=== PATIENT | male | born 1960 | race Caucasian/White ===

== ENCOUNTER 2018-03-30 09:40 | Emergency (ER) | payer MEDICAID ==
[~2018-03-30] VITALS: Ht 162.6 cm; Wt 84.0 kg
[~2018-03-30 09:40] MED LIST: AMLO-511 PO; LOSA50TA25 PO
[2018-03-30] MEDS ORDERED: TAMS0.4C32 PO (09:46)
[2018-03-30] MEDS ORDERED: ANTIBIOTIC (09:46)
[2018-03-30 13:28] VITALS: BP 141/78
== END 2018-03-30 14:12 | disposition home or self-care (01) ==
LOC: EMS 09:41
DX: R31.9 Hematuria, unspecified (principal); I10 Essential (primary) hypertension; N40.0 Benign prostatic hyperplasia without lower urinary tract symptoms; Z88.0 Allergy status to penicillin
CPT/HCPCS: 99283

== ENCOUNTER 2018-04-02 12:36 | Emergency (ER) | payer MEDICAID ==
[~2018-04-02] VITALS: Ht 172.7 cm; Wt 90.9 kg
[~2018-04-02 12:36] MED LIST changes: +ANTIBIOTIC; +TAMS0.4C32 PO
[2018-04-02] MEDS ORDERED: CIPR-278 PO (12:41)
[2018-04-02] MEDS ORDERED: SULFAD500 PO (12:41)
[2018-04-02] MEDS ORDERED: SERT50TA12 PO (12:41)
[2018-04-02] MEDS ORDERED: ACETAMINOPHEN 500 MG TABLET PO ONE (15:00)
[2018-04-02 15:48] VITALS: BP 116/75
[2018-04-02 15:48] LABS: APPEARANCE,URINE TURBID (CLEAR); GLUCOSE, URINE (UA) NEGATIVE (NEGATIVE); KETONES,URINE 15 mg/dL (NEGATIVE); LEUKOCYTE ESTERASE ,URINE MODERATE (NEGATIVE); NITRATE,URINE POSITIVE (NEGATIVE); OCCULT BLOOD,URINE LARGE (NEGATIVE); PROTEIN,URINE SEE CONFIRM (NEGATIVE)
[2018-04-02 15:58] LABS: BILIRUBIN,URINE PRELIM. POSITIVE (NEGATIVE)
[2018-04-02 16:09] LABS: RBC,URINE 51-100 /HPF (0-2); SULFOSALICYLIC ACID,URINE 3+ (Negative)
[2018-04-02 16:10] LABS: BACTERIA,URINE Many /HPF (None Seen); WBC,URINE 51-100 /HPF (0-5)
== END 2018-04-02 16:53 | disposition home or self-care (01) ==
LOC: EMS 12:37
DX: N39.0 Urinary tract infection, site not specified (principal); R31.9 Hematuria, unspecified; I10 Essential (primary) hypertension; N40.0 Benign prostatic hyperplasia without lower urinary tract symptoms; Z88.0 Allergy status to penicillin; Z79.899 Other long term (current) drug therapy
CPT/HCPCS: 87086; 99284

== ENCOUNTER 2018-07-08 05:47 | Emergency (ER) | payer MEDICAID ==
[~2018-07-08] VITALS: Ht 175.3 cm; Wt 79.5 kg
[~2018-07-08 05:47] MED LIST changes: -LOSA50TA25 PO; +LOSA50TA64 PO; +SERT50TA12 PO; +SULFAD500 PO
[2018-07-08] MEDS ORDERED: LORA10TA7 PO (05:59)
[2018-07-08] MEDS ORDERED: IBUP-2070 PO (05:59)
[2018-07-08 07:06] VITALS: BP 130/89
== END 2018-07-08 07:25 | disposition home or self-care (01) ==
LOC: EMS 05:51
DX: M54.12 Radiculopathy, cervical region (principal); M25.511 Pain in right shoulder; I10 Essential (primary) hypertension; Z88.0 Allergy status to penicillin

== ENCOUNTER 2019-11-30 10:30 | Inpatient (IN) | payer OTHER ==
[~2019-11-30] VITALS: Ht 157.5 cm; Wt 91.4 kg
[~2019-11-30 10:30] MED LIST changes: +AMLO-257 PO; -AMLO-511 PO; -ANTIBIOTIC; +IBUP-2070 PO; +LORA10TA7 PO; +LOSA50TA37 PO; -LOSA50TA64 PO; -SERT50TA12 PO; -SULFAD500 PO; +TAMS-13 PO; -TAMS0.4C32 PO
[2019-12-30] MEDS ORDERED: TRANEXAMIC ACID 1,000 MG in DEXTROSE 5%-WATER 50 ML IV ONE ×2
[2019-12-30] MEDS ORDERED: CeFAZolin 2 GM/DEXTROSE 50 ML IV ONE ×2 (07:00→13:52)
[2019-12-30 11:43] LABS: BASOPHILS % (AUTO) 1.2 % (0.0-2.0); EOSINOPHILS % (AUTO) 6.3 % (1.0-6.0); HEMATOCRIT 40.3 % (41-53); HEMOGLOBIN 13.1 g/dL (13.5-17.5); LYMPHOCYTES # (AUTO) 1.4 K/uL (1.0-4.8); LYMPHOCYTES % (AUTO) 22.2 % (22.0-44.0); MEAN CORPUSCULAR HGB CONC 32.6 G/dL (31.0-37.0); MEAN CORPUSCULAR VOLUME 80 fL (80-100); MONOCYTES # (AUTO) 0.7 K/uL (0.1-1.0); MONOCYTES % (AUTO) 11.1 % (2.0-9.0); NEUTROPHILS # (AUTO) 3.8 K/uL (1.8-7.7); NEUTROPHILS % (AUTO) 59.2 % (40.0-70.0); PLATELET COUNT (AUTO) 202 K/uL (150-450); RED BLOOD CELL COUNT(AUTO) 5.05 MIL/uL (4.50-5.90); RED CELL DISTRIBUTION WIDTH 15.1 % (11.5-14.5)
[2019-12-30] MEDS ORDERED: RINGERS SOLUTION,LACTATED 1,000 ML IV ONE ×3 (12:00→17:02)
[2019-12-30] MEDS ORDERED: BUPIVACAINE LIPOSOME/PF 1.3%-13.3MG/ML SUSPENSION 20 ML VIAL INJ ONE (16:00)
[2019-12-30] MEDS ORDERED: TRANEXAMIC ACID 1,000 MG/10 ML VIAL ONE ×2 (16:07→18:12)
[2019-12-30] MEDS ORDERED: BUPIVACAINE HCL/PF 0.5% 30 ML VIAL ONE (16:07)
[2019-12-30] MEDS ORDERED: BACITRACIN 50,000 UNITS/VIAL ONE (16:07)
[2019-12-30] MEDS ORDERED: SODIUM CL IRRIG SOLN BAG 3,000 ML IRRIG ONE (16:07)
[2019-12-30] MEDS ORDERED: SODIUM CHLORIDE 0.9% 10 ML ONE (16:15)
[2019-12-30] MEDS ORDERED: BUPIVACAINE LIPOSOME/PF 1.3%-13.3MG/ML SUSPENSION 10 ML VIAL INJ ONE (16:15)
[2019-12-30] MEDS ORDERED: ACETAMINOPHEN 1000 MG/ISO-OSM 100 ML IV ONE (17:00)
[2019-12-30] MEDS ORDERED: MEPERIDINE-PF 25 MG/ML VIAL IVP PRN (17:00)
[2019-12-30] MEDS ORDERED: HYDROmorphone 2 MG/ML SYRINGE IVP PRN ×3 (17:00→18:30)
[2019-12-30] MEDS ORDERED: OxyCODONE HCL/ACETAMINOPHEN 5-325 MG TABLET PO PRN (17:00)
[2019-12-30] MEDS ORDERED: FentaNYL CITRATE-PF 100 MCG/2 ML VIAL IVP PRN (17:00)
[2019-12-30] MEDS ORDERED: KETOROLAC TROMETHAMINE 15 MG/ML VIAL IVP PRN (18:30)
[2019-12-30] MEDS ORDERED: BISACODYL 10 MG RECTAL RECTAL SUPPOSITORY PR PRN ×2 (18:30→20:30)
[2019-12-30] MEDS ORDERED: DiphenhydrAMINE HCL 50 MG/ML VIAL IVP PRN (18:30)
[2019-12-30] MEDS ORDERED: ONDANSETRON HCL 4 MG/2 ML VIAL IVP PRN ×2 (18:30→20:30)
[2019-12-30 20:00] VITALS: BP 150/106
[2019-12-30] MEDS ORDERED: OXYGEN THERAPY IH SCH (20:00)
[2019-12-30] MEDS ORDERED: MORPHINE SULFATE 2 MG/ML SYRINGE IVP PRN (20:30)
[2019-12-30] MEDS ORDERED: ACETAMINOPHEN 325 MG TABLET PO PRN (20:30)
[2019-12-30] MEDS ORDERED: MAGNESIUM HYDROXIDE SUSPENSION 30 ML UDCUP PO PRN (20:30)
[2019-12-30] MEDS ORDERED: ALBUTEROL SULFATE 2.5 MG/0.5 ML NEB SOLUTION NEB PRN (20:30)
[2019-12-30] MEDS ORDERED: ZOLPIDEM TARTRATE 5 MG TABLET PO PRN (20:30)
[2019-12-30] MEDS ORDERED: AmLODIPine BESYLATE 5 MG TABLET PO ONE (20:30)
[2019-12-30] MEDS ORDERED: IPRATROPIUM BROMIDE 0.5 MG/2.5 ML NEB SOLUTION NEB PRN (20:30)
[2019-12-30] MEDS ORDERED: DOCUSATE SODIUM 100 MG CAPSULE PO SCH (21:00)
[2019-12-30] MEDS: CYCLOBENZAPRINE HCL 10 MG TABLET PO SCH (21:10)
[2019-12-30] MEDS: DOCUSATE SODIUM 100 MG CAPSULE PO SCH (21:11)
[2019-12-30] MEDS: HYDROCODONE/ACETAMINOPHEN 5-325 MG TABLET PO PRN (21:11)
[2019-12-30] MEDS: SODIUM CHLORIDE 0.45% 1,000 ML IV SCH (21:18)
[2019-12-30 23:40] VITALS: BP 133/85
[2019-12-31] MEDS: ACETAMINOPHEN 1000 MG/ISO-OSM 100 ML IV SCH ×3 (01:21→11:00)
[2019-12-31 04:20] VITALS: BP 144/94
[2019-12-31] MEDS ORDERED: PROPOFOL 1% 20 ML VIAL IVP ONE (05:26)
[2019-12-31] MEDS ORDERED: LABETALOL HCL 5 MG/ML 20 ML VIAL IVP ONE (05:26)
[2019-12-31] MEDS ORDERED: METOCLOPRAMIDE HCL 5 MG/ML 2 ML VIAL IVP ONE (05:26)
[2019-12-31] MEDS ORDERED: MIDAZOLAM HCL 2 MG/2 ML VIAL IVP ONE (05:26)
[2019-12-31] MEDS ORDERED: DEXAMETHASONE SOD PHOS 4 MG/ML VIAL IVP ONE (05:26)
[2019-12-31] MEDS ORDERED: KETAMINE HCL 50 MG/ML 10 ML VIAL IVP ONE (05:26)
[2019-12-31] MEDS ORDERED: FentaNYL CITRATE-PF 100 MCG/2 ML VIAL IVP ONE (05:26)
[2019-12-31] MEDS ORDERED: ONDANSETRON HCL 4 MG/2 ML VIAL IVP ONE (05:26)
[2019-12-31] MEDS ORDERED: LIDOCAINE/PF 2% 5 ML SYRINGE IVP ONE (05:26)
[2019-12-31 07:10] LABS: BASOPHILS % (AUTO) 0.1 % (0.0-2.0); EOSINOPHILS % (AUTO) 0 % (1.0-6.0); HEMATOCRIT 39.9 % (41-53); HEMOGLOBIN 13.4 g/dL (13.5-17.5); LYMPHOCYTES # (AUTO) 0.7 K/uL (1.0-4.8); MEAN CORPUSCULAR HEMOGLOBIN 26.7 pg (26.0-34.0); MEAN CORPUSCULAR HGB CONC 33.7 G/dL (31.0-37.0); MEAN CORPUSCULAR VOLUME 79 fL (80-100); MONOCYTES # (AUTO) 0.5 K/uL (0.1-1.0); MONOCYTES % (AUTO) 4.4 % (2.0-9.0); NEUTROPHILS # (AUTO) 9.2 K/uL (1.8-7.7); PLATELET COUNT (AUTO) 211 K/uL (150-450); RED BLOOD CELL COUNT(AUTO) 5.04 MIL/uL (4.50-5.90); RED CELL DISTRIBUTION WIDTH 15.4 % (11.5-14.5)
[2019-12-31 07:16] LABS: NEUTROPHILS % (AUTO) 88.5 % (40.0-70.0)
[2019-12-31] MEDS: SODIUM CHLORIDE 0.45% 1,000 ML IV SCH (07:50)
[2019-12-31 08:00] VITALS: BP 134/91
[2019-12-31] MEDS ORDERED: FERROUS SULFATE 325 MG EC TABLET PO SCH (08:00)
[2019-12-31] MEDS ORDERED: ENOXAPARIN SODIUM 30 MG/0.3 ML PF SYRINGE SQ SCH (08:00)
[2019-12-31] MEDS: CYCLOBENZAPRINE HCL 10 MG TABLET PO SCH (08:15)
[2019-12-31] MEDS: DOCUSATE SODIUM 100 MG CAPSULE PO SCH (08:15)
[2019-12-31] MEDS ORDERED: LOSARTAN POTASSIUM 50 MG TABLET PO SCH ×2 (09:00)
[2019-12-31] MEDS ORDERED: AmLODIPine BESYLATE 5 MG TABLET PO SCH ×2 (09:00)
[2019-12-31] MEDS ORDERED: PANTOPRAZOLE SODIUM 40 MG DR TABLET PO SCH (09:00)
[2019-12-31] MEDS ORDERED: LOSARTAN POTASSIUM 25 MG TABLET PO SCH ×2 (09:00)
[2019-12-31] MEDS: HYDROCODONE/ACETAMINOPHEN 5-325 MG TABLET PO PRN (09:39)
[2019-12-31] MEDS ORDERED: PERCT PO (10:13)
== END 2019-12-31 14:10 | disposition home or self-care (01) | DRG 470 ==
LOC: 4E 12-30 10:44
PROVIDERS: ADMIT Orthopaedic Surgery; ATTEND Orthopaedic Surgery
PROC: 0SBD0ZZ Excision of Left Knee Joint, Open Approach (ICD-10-PCS; 2019-12-30)
PROC: 0SRD0L9 Replacement of Left Knee Joint with Medial Unicondylar Synthetic Substitute, Cemented, Open Approach (ICD-10-PCS; principal; 2019-12-30 14:00)
DX: M17.12 Unilateral primary osteoarthritis, left knee (principal); I10 Essential (primary) hypertension; S83.242A Other tear of medial meniscus, current injury, left knee, initial encounter; Z20.828 Contact with and (suspected) exposure to other viral communicable diseases; Z82.49 Family history of ischemic heart disease and other diseases of the circulatory system; Z88.0 Allergy status to penicillin
CPT/HCPCS: 88305; 88311; 93005; 97116; 97162; C9290; G0378; J0131; J0690; J1100; J1650; J2250; J2270; J2405; J2704; J2765; J3010; J3490; J7060; J7120; 36415-L1; 36415-TC; 71045-TC; C1716; U0003

== ENCOUNTER 2020-03-16 12:05 | Inpatient (IN) | payer MEDICAID, OTHER ==
[~2020-03-16] VITALS: Ht 170.2 cm; Wt 78.0 kg
[~2020-03-16 12:05] MED LIST changes: -IBUP-2070 PO; -LORA10TA7 PO; +PERCT PO; -TAMS-13 PO
[2020-03-16 12:41] LABS: BASOPHILS % (AUTO) 0.3 % (0.0-2.0); EOSINOPHILS % (AUTO) 0.2 % (1.0-6.0); HEMATOCRIT 40.1 % (41-53); HEMOGLOBIN 13.6 g/dL (13.5-17.5); LYMPHOCYTES # (AUTO) 1.5 K/uL (1.0-4.8); LYMPHOCYTES % (AUTO) 14.6 % (22.0-44.0); MEAN CORPUSCULAR HEMOGLOBIN 26.6 pg (26.0-34.0); MEAN CORPUSCULAR HGB CONC 33.9 G/dL (31.0-37.0); MEAN CORPUSCULAR VOLUME 79 fL (80-100); MONOCYTES # (AUTO) 0.8 K/uL (0.1-1.0); MONOCYTES % (AUTO) 8.3 % (2.0-9.0); NEUTROPHILS # (AUTO) 7.7 K/uL (1.8-7.7); NEUTROPHILS % (AUTO) 76.6 % (40.0-70.0); PLATELET COUNT (AUTO) 244 K/uL (150-450); RED BLOOD CELL COUNT(AUTO) 5.11 MIL/uL (4.50-5.90); RED CELL DISTRIBUTION WIDTH 14.9 % (11.5-14.5)
[2020-03-16] MEDS ORDERED: FentaNYL CITRATE-PF 100 MCG/2 ML VIAL ONE (12:45)
[2020-03-16 12:46] LABS: COVID AG,FIA SOURCE NASOPHARYNGEAL
[2020-03-16] MEDS ORDERED: MIDAZOLAM HCL 2 MG/2 ML VIAL ONE (12:46)
[2020-03-16] MEDS ORDERED: SODIUM BICARBONATE 50 MEQ/50 ML VIAL ONE (12:46)
[2020-03-16] MEDS ORDERED: IOHEXOL 300 MG/ML 150 ML VIAL ONE (12:46)
[2020-03-16] MEDS ORDERED: LIDOCAINE/PF 1% 30 ML VIAL ONE (12:46)
[2020-03-16] MEDS ORDERED: HEPARIN SODIUM,PORCINE 1,000 UNITS/ML 10 ML VIAL ONE (12:46)
[2020-03-16] MEDS ORDERED: HEPARIN SODIUM 1000 UNITS/NS 1,000 ML ONE (12:46)
[2020-03-16 12:51] VITALS: BP 138/85
[2020-03-16 12:52] LABS: ANION GAP 10 mmol/L (8-16); CALCIUM, TOTAL 8.9 mg/dL (8.8-10.5); CARBON DIOXIDE 27 mmol/L (22-29); CHLORIDE 105 mmol/L (98-107); CREATININE 0.93 mg/dL (0.60-1.30); GLOMERULAR FILTR. RATE CALC > 60 mL/min (>60); GLUCOSE,RANDOM 136 mg/dL (70-110); POTASSIUM 3.2 mmol/L (3.5-5.1); SODIUM SERUM 142 mmol/L (136-145); UREA NITROGEN, BLOOD 23 mg/dL (7-18)
[2020-03-16] MEDS ORDERED: VERAPAMIL HCL 2.5 MG/ML 2 ML VIAL ONE (12:55)
[2020-03-16] MEDS ORDERED: TICAGRELOR 90 MG TABLET ONE (12:55)
[2020-03-16] MEDS ORDERED: ASPIRIN 325 MG TABLET ONE (12:55)
[2020-03-16] MEDS ORDERED: NITROGLYCERIN 50 MG/D5% WATER 250 ML ONE (12:55)
[2020-03-16] MEDS ORDERED: POTASSIUM CHLORIDE 20 MEQ ER TABLET ONE (12:58)
[2020-03-16] MEDS ORDERED: HEPARIN SODIUM 2,000 UNITS in HEPARIN SODIUM 1000 UNITS/NS 1,000 ML IARTER ONE (13:08)
[2020-03-16 13:12] LABS: B-TYPE NATRIURETIC PEPTIDE 18 pg/mL (0-100)
[2020-03-16] MEDS ORDERED: IOHEXOL 300 MG/ML 150 ML VIAL IARTER ONE (13:15)
[2020-03-16] MEDS ORDERED: LIDOCAINE 1% 30 ML/SOD BICARB 8.4% 4 ML SQ ONE (13:15)
[2020-03-16 13:18] LABS: ALANINE AMINOTRANSFERASE 29 U/L (12-78); ALBUMIN 3.6 g/dL (3.4-5.0); ALKALINE PHOSPHATASE 100 U/L (46-116); ASPARTATE AMINOTRANSFERASE 17 U/L (15-37); BILIRUBIN,TOTAL 0.5 mg/dL (0.1-1.0); CREATINE KINASE, TOTAL ONLY 159 U/L (39-308); TOTAL PROTEIN, SERUM 6.7 g/dL (6.4-8.2)
[2020-03-16 13:20] LABS: PROTHROMBIN TIME 10.2 SEC (9.4-11.6)
[2020-03-16 13:44] VITALS: BP 158/90
[2020-03-16] MEDS ORDERED: ACETAMINOPHEN 325 MG TABLET PO PRN ×2 (13:45→14:00)
[2020-03-16] MEDS ORDERED: OxyCODONE HCL/ACETAMINOPHEN 5-325 MG TABLET PO PRN (13:45)
[2020-03-16 14:00] VITALS: BP 122/93
[2020-03-16] MEDS ORDERED: IPRATROPIUM BROMIDE 0.5 MG/2.5 ML NEB SOLUTION NEB PRN (14:00)
[2020-03-16] MEDS ORDERED: 0.9% SODIUM CHLORIDE 10 ML SYRINGE IVP PRN (14:00)
[2020-03-16] MEDS ORDERED: BISACODYL 10 MG RECTAL RECTAL SUPPOSITORY PR PRN (14:00)
[2020-03-16] MEDS ORDERED: MORPHINE SULFATE 2 MG/ML SYRINGE IVP PRN (14:00)
[2020-03-16] MEDS ORDERED: ALBUTEROL SULFATE 2.5 MG/0.5 ML NEB SOLUTION NEB PRN (14:00)
[2020-03-16] MEDS ORDERED: ONDANSETRON HCL 4 MG/2 ML VIAL IVP PRN (14:00)
[2020-03-16] MEDS ORDERED: MAGNESIUM HYDROXIDE SUSPENSION 30 ML UDCUP PO PRN (14:00)
[2020-03-16] MEDS: METOPROLOL SUCCINATE 50 MG ER TABLET PO SCH (15:51)
[2020-03-16] MEDS: PANTOPRAZOLE SODIUM 40 MG DR TABLET PO SCH (15:51)
[2020-03-16] MEDS: LOSARTAN POTASSIUM 50 MG TABLET PO SCH (15:51)
[2020-03-16 16:00] VITALS: BP 149/99
[2020-03-16 17:03] VITALS: BP 149/99
[2020-03-16 20:00] VITALS: BP 135/85
[2020-03-16] MEDS ORDERED: METOPROLOL TARTRATE 25 MG TABLET PO SCH (21:00)
[2020-03-16] MEDS ORDERED: AmLODIPine BESYLATE 2.5 MG TABLET PO SCH (21:00)
[2020-03-17 04:01] VITALS: BP 141/95
[2020-03-17 07:00] LABS: BASOPHILS % (AUTO) 0.3 % (0.0-2.0); EOSINOPHILS % (AUTO) 1.6 % (1.0-6.0); HEMATOCRIT 37.9 % (41-53); HEMOGLOBIN 12.8 g/dL (13.5-17.5); LYMPHOCYTES # (AUTO) 2.4 K/uL (1.0-4.8); LYMPHOCYTES % (AUTO) 27.5 % (22.0-44.0); MEAN CORPUSCULAR HEMOGLOBIN 26.5 pg (26.0-34.0); MEAN CORPUSCULAR HGB CONC 33.8 G/dL (31.0-37.0); MEAN CORPUSCULAR VOLUME 79 fL (80-100); MONOCYTES # (AUTO) 0.9 K/uL (0.1-1.0); MONOCYTES % (AUTO) 10.2 % (2.0-9.0); NEUTROPHILS # (AUTO) 5.2 K/uL (1.8-7.7); NEUTROPHILS % (AUTO) 60.4 % (40.0-70.0); PLATELET COUNT (AUTO) 216 K/uL (150-450); RED BLOOD CELL COUNT(AUTO) 4.82 MIL/uL (4.50-5.90); RED CELL DISTRIBUTION WIDTH 15.1 % (11.5-14.5)
[2020-03-17 07:25] LABS: % IRON SATURATION 29.2 % (30-44); IRON, SERUM 102 mcg/dL (50-175); TOTAL IRON BINDING CAPACITY 349 mcg/dL (250-450)
[2020-03-17 07:40] LABS: ALANINE AMINOTRANSFERASE 28 U/L (12-78); ALBUMIN 3.2 g/dL (3.4-5.0); ALKALINE PHOSPHATASE 89 U/L (46-116); ANION GAP 5 mmol/L (8-16); ASPARTATE AMINOTRANSFERASE 18 U/L (15-37); BILIRUBIN,TOTAL 0.8 mg/dL (0.1-1.0); CALCIUM, TOTAL 8.3 mg/dL (8.8-10.5); CARBON DIOXIDE 30 mmol/L (22-29); CHLORIDE 106 mmol/L (98-107); CHOL/HDL RATIO 3.6 (4.2-7.3); CHOLESTEROL 162 mg/dL (131-200); CREATININE 0.86 mg/dL (0.60-1.30); FERRITIN 21 ng/mL (26-388); FREE T4 (FREE THYROXINE) 0.95 ng/dL (0.76-1.46); GLOMERULAR FILTR. RATE CALC > 60 mL/min (>60); GLUCOSE,RANDOM 99 mg/dL (70-110); HDL CHOLESTEROL 45 mg/dL (40-60); LDL CHOL (CALC.) 101 mg/dL (0-130); POTASSIUM 3.5 mmol/L (3.5-5.1); SODIUM SERUM 141 mmol/L (136-145); THYROID STIMULATING HORMONE 0.79 uIU/mL (0.36-3.74); TRIGLYCERIDES 82 mg/dL (15-150); UREA NITROGEN, BLOOD 19 mg/dL (7-18)
[2020-03-17 08:00] VITALS: BP 140/88
[2020-03-17] MEDS: METOPROLOL SUCCINATE 50 MG ER TABLET PO SCH (08:51)
[2020-03-17] MEDS: LOSARTAN POTASSIUM 50 MG TABLET PO SCH (08:51)
[2020-03-17] MEDS: PANTOPRAZOLE SODIUM 40 MG DR TABLET PO SCH (08:51)
[2020-03-17] MEDS ORDERED: LOSARTAN POTASSIUM 50 MG TABLET PO SCH (09:00)
[2020-03-17] MEDS ORDERED: ASPIRIN 81 MG CHEWABLE TABLET PO SCH (09:00)
[2020-03-17 12:00] VITALS: BP 140/82
[2020-03-17] MEDS ORDERED: LOSA50TA37 PO (14:58)
[2020-03-17] MEDS ORDERED: AMLO-257 PO (14:58)
[2020-03-17] MEDS ORDERED: ASPI-728 PO (14:58)
[2020-03-17] MEDS ORDERED: METO-558 PO (14:59)
[2020-03-17] MEDS ORDERED: ACET-784 PO (15:00)
[2020-03-17] MEDS ORDERED: AmLODIPine BESYLATE 5 MG TABLET PO SCH (21:00)
[2020-03-18] MEDS ORDERED: LOSARTAN POTASSIUM 50 MG TABLET PO SCH (09:00)
== END 2020-03-17 17:05 | disposition home or self-care (01) | DRG 190 ==
LOC: EMS 12:06 → 5S 13:23
PROVIDERS: ADMIT Internal Medicine; ATTEND Internal Medicine
DX: I21.09 ST elevation (STEMI) myocardial infarction involving other coronary artery of anterior wall (principal); D50.9 Iron deficiency anemia, unspecified; E78.5 Hyperlipidemia, unspecified; E87.6 Hypokalemia; I11.9 Hypertensive heart disease without heart failure; N40.0 Benign prostatic hyperplasia without lower urinary tract symptoms; Z82.49 Family history of ischemic heart disease and other diseases of the circulatory system; Z88.0 Allergy status to penicillin; Z03.818 Encounter for observation for suspected exposure to other biological agents ruled out
CPT/HCPCS: 82728; 83540; 83550; 84439; 84443; 87426; 93005; 93306; J1644; J2250; J3010; J3490; Q9967; 36415-L1; 36415-TC; 71045-TC; 80061-TC; Z7610

== ENCOUNTER 2020-04-11 12:39 | Emergency (ER) | payer MEDICAID ==
[~2020-04-11] VITALS: Ht 170.2 cm; Wt 80.0 kg
[~2020-04-11 12:39] MED LIST changes: +ACET-784 PO; +ASPI-728 PO; +METO-558 PO; -PERCT PO
[2020-04-11 13:48] VITALS: BP 153/97
== END 2020-04-11 13:56 | disposition home or self-care (01) ==
LOC: EMS 12:41
DX: G47.00 Insomnia, unspecified (principal); I10 Essential (primary) hypertension; Z88.0 Allergy status to penicillin; Z79.899 Other long term (current) drug therapy
CPT/HCPCS: 99283; Z7502

== ENCOUNTER 2020-06-15 08:02 | Emergency (ER) | payer MEDICAID ==
[~2020-06-15] VITALS: Ht 175.3 cm; Wt 86.0 kg
[2020-06-15 08:10] VITALS: BP 158/95
[2020-06-15] MEDS ORDERED: ACETAMINOPHEN 500 MG TABLET PO ONE (08:45)
[2020-06-15 09:48] LABS: COVID AG,FIA SOURCE NASOPHARYNGEAL
== END 2020-06-15 09:19 | disposition home or self-care (01) ==
LOC: EMS 08:02
DX: U07.1 COVID-19 (principal)
CPT/HCPCS: 87426; 99283; C9803; U0003

== ENCOUNTER 2020-06-28 09:27 | Emergency (ER) | payer MEDICAID ==
[~2020-06-28] VITALS: Ht 172.7 cm; Wt 72.7 kg
[2020-06-28 09:31] VITALS: BP 149/90
== END 2020-06-28 10:35 | disposition home or self-care (01) ==
LOC: EMS 09:27
DX: U07.1 COVID-19 (principal); I10 Essential (primary) hypertension; Z88.0 Allergy status to penicillin; Z79.899 Other long term (current) drug therapy
CPT/HCPCS: 99283; U0003

== ENCOUNTER 2020-07-09 12:00 | Emergency (ER) | payer MEDICAID ==
[~2020-07-09] VITALS: Ht 170.2 cm; Wt 77.3 kg
[2020-07-09] MEDS ORDERED: CLOP75TA60 PO (12:07)
[2020-07-09] MEDS ORDERED: NITROGLYCERIN 2% (1 GM=INCH) PACKET TP ONE (13:15)
[2020-07-09] MEDS ORDERED: ASPIRIN 81 MG CHEWABLE TABLET PO ONE (13:15)
[2020-07-09 14:05] LABS: BASOPHILS % (AUTO) 0.3 % (0.0-2.0); EOSINOPHILS % (AUTO) 2.9 % (1.0-6.0); HEMATOCRIT 38.9 % (41-53); LYMPHOCYTES # (AUTO) 1.1 K/uL (1.0-4.8); LYMPHOCYTES % (AUTO) 16.9 % (22.0-44.0); MEAN CORPUSCULAR HEMOGLOBIN 26.1 pg (26.0-34.0); MEAN CORPUSCULAR HGB CONC 33.4 G/dL (31.0-37.0); MEAN CORPUSCULAR VOLUME 78 fL (80-100); MONOCYTES # (AUTO) 0.5 K/uL (0.1-1.0); MONOCYTES % (AUTO) 8.2 % (2.0-9.0); NEUTROPHILS # (AUTO) 4.7 K/uL (1.8-7.7); NEUTROPHILS % (AUTO) 71.7 % (40.0-70.0); PLATELET COUNT (AUTO) 243 K/uL (150-450); RED BLOOD CELL COUNT(AUTO) 4.99 MIL/uL (4.50-5.90); RED CELL DISTRIBUTION WIDTH 15.7 % (11.5-14.5)
[2020-07-09 14:20] LABS: PROTHROMBIN TIME 10.3 SEC (9.4-11.6)
[2020-07-09 14:26] LABS: ANION GAP 9 mmol/L (8-16); CALCIUM, TOTAL 8.3 mg/dL (8.8-10.5); CARBON DIOXIDE 27 mmol/L (22-29); CHLORIDE 105 mmol/L (98-107); CREATININE 0.85 mg/dL (0.60-1.30); GLOMERULAR FILTR. RATE CALC > 60 mL/min (>60); GLUCOSE,RANDOM 100 mg/dL (70-110); POTASSIUM 3.3 mmol/L (3.5-5.1); SODIUM SERUM 141 mmol/L (136-145); UREA NITROGEN, BLOOD 16 mg/dL (7-18)
[2020-07-09 14:53] LABS: ALANINE AMINOTRANSFERASE 22 U/L (12-78); ALBUMIN 3.4 g/dL (3.4-5.0); ALKALINE PHOSPHATASE 93 U/L (46-116); ASPARTATE AMINOTRANSFERASE 16 U/L (15-37); CREATINE KINASE, TOTAL ONLY 139 U/L (39-308); TOTAL PROTEIN, SERUM 6.8 g/dL (6.4-8.2)
[2020-07-09 15:33] LABS: B-TYPE NATRIURETIC PEPTIDE 39 pg/mL (0-100)
[2020-07-09 16:06] LABS: COVID AG,FIA SOURCE NASOPHARYNGEAL
[2020-07-09] MEDS ORDERED: ACETAMINOPHEN 325 MG TABLET PO ONE (16:15)
[2020-07-09 17:28] LABS: APPEARANCE,URINE CLEAR (CLEAR); BILIRUBIN,URINE NEGATIVE (NEGATIVE); GLUCOSE, URINE (UA) NEGATIVE (NEGATIVE); KETONES,URINE NEGATIVE (NEGATIVE); LEUKOCYTE ESTERASE ,URINE TRACE (NEGATIVE); NITRATE,URINE NEGATIVE (NEGATIVE); OCCULT BLOOD,URINE NEGATIVE (NEGATIVE); PH,URINE 5.5 (5.0-8.0); PROTEIN,URINE NEGATIVE (NEGATIVE); UROBILINOGEN,URINE 0.2 mg/dL (<=1.0)
[2020-07-09 17:51] LABS: BACTERIA,URINE None Seen /HPF (None Seen); MUCUS,URINE Many LPF (None Seen); RBC,URINE None Seen /HPF (0-2); SQUAMOUS EPITHELIAL CELL,UR Rare /LPF (None Seen)
[2020-07-09 20:17] VITALS: BP 115/74
== END 2020-07-09 20:21 | disposition home or self-care (01) ==
LOC: EMS 12:12
DX: R07.89 Other chest pain (principal); I10 Essential (primary) hypertension; Z20.822 Contact with and (suspected) exposure to COVID-19; Z88.0 Allergy status to penicillin; Z79.82 Long term (current) use of aspirin
CPT/HCPCS: 87086; 87426; 93005; 36415-L1; 36415-TC; 71045-TC

== ENCOUNTER 2020-07-27 02:14 | Emergency (ER) | payer MEDICAID ==
[~2020-07-27] VITALS: Ht 157.5 cm; Wt 86.4 kg
[~2020-07-27 02:14] MED LIST changes: +CLOP75TA60 PO
[2020-07-27 03:41] LABS: BASOPHILS % (AUTO) 0.6 % (0.0-2.0); EOSINOPHILS % (AUTO) 0.6 % (1.0-6.0); HEMATOCRIT 39.3 % (41-53); HEMOGLOBIN 13.1 g/dL (13.5-17.5); LYMPHOCYTES # (AUTO) 1.5 K/uL (1.0-4.8); LYMPHOCYTES % (AUTO) 20.5 % (22.0-44.0); MEAN CORPUSCULAR HGB CONC 33.3 G/dL (31.0-37.0); MEAN CORPUSCULAR VOLUME 78 fL (80-100); MONOCYTES # (AUTO) 0.9 K/uL (0.1-1.0); MONOCYTES % (AUTO) 11.8 % (2.0-9.0); NEUTROPHILS % (AUTO) 66.5 % (40.0-70.0); PLATELET COUNT (AUTO) 232 K/uL (150-450); RED BLOOD CELL COUNT(AUTO) 5.02 MIL/uL (4.50-5.90)
[2020-07-27 03:52] LABS: ANION GAP 8 mmol/L (8-16); CALCIUM, TOTAL 8.5 mg/dL (8.8-10.5); CARBON DIOXIDE 29 mmol/L (22-29); CHLORIDE 110 mmol/L (98-107); CREATININE 0.88 mg/dL (0.60-1.30); GLOMERULAR FILTR. RATE CALC > 60 mL/min (>60); GLUCOSE,RANDOM 116 mg/dL (70-110); POTASSIUM 3.4 mmol/L (3.5-5.1); SODIUM SERUM 147 mmol/L (136-145); UREA NITROGEN, BLOOD 23 mg/dL (7-18)
[2020-07-27 03:59] LABS: ALANINE AMINOTRANSFERASE 28 U/L (12-78); ALBUMIN 3.6 g/dL (3.4-5.0); ALKALINE PHOSPHATASE 93 U/L (46-116); ASPARTATE AMINOTRANSFERASE 20 U/L (15-37); BILIRUBIN,TOTAL 0.6 mg/dL (0.1-1.0); TOTAL PROTEIN, SERUM 6.8 g/dL (6.4-8.2)
[2020-07-27 04:59] VITALS: BP 158/99
== END 2020-07-27 06:27 | disposition home or self-care (01) ==
LOC: EMS 02:16
DX: I10 Essential (primary) hypertension (principal)
CPT/HCPCS: 93005; 99284